=== PATIENT | male | born 2005 | race Two or more races ===

== ENCOUNTER 2024-01-07 18:00 | Emergency (ER) | payer OTHER ==
[~2024-01-07] VITALS: Ht 175.3 cm; Wt 136.0 kg
[2024-01-07 18:09] VITALS: BP 148/103
[2024-01-07] MEDS ORDERED: ONDANSETRON HCl 4 MG/2 ML SDV IV ONE (18:10)
[2024-01-07] MEDS ORDERED: MORPHINE SULFATE 4 MG/ML VIAL IV ONE (18:10)
[2024-01-07 18:27] LABS: BASO% 0.4 % (0-3); EOS% 2.9 % (0-8); HEMATOCRIT 45.6 % (39.0-50.0); HEMOGLOBIN 14.7 g/dl (14.0-18.0); IMMATURE GRANULOCYTES 0.3 % (0.0-5.0); LYMPH% 28.9 % (15-41); MEAN CELL VOLUME 83.1 fL CALC (80.0-100.0); MEAN CORPUSCULAR HGB 26.8 pG CALC (26.0-32.0); MEAN CORPUSCULAR HGB CONC 32.2 g/dL CAL (32.0-36.0); MONO% 8.3 % (2-13); NEUT# 7.18 thou/uL (1.82-7.42); NEUT% 59.2 % (42-76); RED BLOOD COUNT 5.49 mill/uL (4.70-6.10); RED CELL DISTRI WIDTH 12.9 % (11.5-15.5)
[2024-01-07 18:43] LABS: ALBUMIN 4.5 g/dL (3.2-5.0); ALKALINE PHOSPHATASE 117 u/l (38-126); ANION GAP 10 (6-22 (CALC)); BILIRUBIN, TOTAL 0.4 mg/dL (0.2-1.3); BUN 21 mg/dL (9-20); BUN/CREATININE RATIO 26 (12-20 (CALC)); CARBON DIOXIDE 27 mmol/l (22-30); CHLORIDE 107 mmol/l (95-108); CREATININE 0.8 mg/dL (0.7-1.3); ESTIMATED GFR 130 ML/MIN (>=90 (CALC)); ETHYL ALCOHOL 0 mg/dl (0-30); LIPASE 80 u/l (23-300); POTASSIUM 4.1 mmol/l (3.5-5.1); SGOT/AST 25 u/l (17-59); SODIUM 141 mmol/l (137-146); TOTAL PROTEIN 8.3 g/dL (6.3-8.2)
[2024-01-07 18:47] VITALS: BP 135/97
[2024-01-07 19:01] VITALS: BP 133/80
[2024-01-07] MEDS ORDERED: VOLTAREN - GENE75 MG PO (20:23)
[2024-01-07] MEDS ORDERED: DICLOFENAC SODIUM 75 MG/TAB PO ONE (20:25)
[2024-01-07] MEDS ORDERED: traMADol HCL 50 MG/TAB PO ONE (20:25)
[2024-01-07] MEDS ORDERED: ACETAMINOPHEN 500 MG TAB PO ONE (20:25)
[2024-01-07 21:07] VITALS: BP 133/80
== END 2024-01-07 21:07 | disposition home or self-care (01) | DRG 605 ==
LOC: ED 18:00
PROVIDERS: Family Medicine
DX: S00.03XA Contusion of scalp, initial encounter (principal); S16.1XXA Strain of muscle, fascia and tendon at neck level, initial encounter; V29.408A Other motorcycle driver injured in collision with unspecified motor vehicles in traffic accident, initial encounter
CPT/HCPCS: Q9967